=== PATIENT | male | born 1970 | race Caucasian/White ===

== ENCOUNTER 2021-03-07 16:42 | Outpatient (CLI) | payer OTHER | END 2021-03-07 16:43 | disposition home or self-care (01) | LOC: COV 16:42 | PROVIDERS: ATTEND Orthopaedic Surgery | DX: Z01.812 Encounter for preprocedural laboratory examination (principal); M76.12 Psoas tendinitis, left hip; Z20.822 Contact with and (suspected) exposure to COVID-19 ==

== ENCOUNTER 2021-04-03 17:20 | Outpatient (CLI) | payer OTHER | END 2021-04-03 17:21 | disposition home or self-care (01) | LOC: COV 17:20 | PROVIDERS: ATTEND Family Medicine | DX: M79.10 Myalgia, unspecified site (principal); R53.83 Other fatigue; Z20.822 Contact with and (suspected) exposure to COVID-19 ==